=== PATIENT | female | born 1955 | race Caucasian/White ===

== ENCOUNTER → 2016-05-10 17:14 | Outpatient (CLI) | payer OTHER | END | disposition home or self-care (01) | LOC: D.MAMMO 15:00 | DX: Z12.31 Encounter for screening mammogram for malignant neoplasm of breast (principal) ==

== ENCOUNTER 2016-07-03 08:28 | Emergency (ER) | payer OTHER ==
[2016-07-03 09:53] LABS: BASOPHILS 0.1 % (0.0-2.0); EOSINOPHILS 0 % (0-7); HEMATOCRIT 44.8 % (36.0-48.0); HEMOGLOBIN 14.9 g/dL (12-16); IMMATURE GRANULOCYTES 0.2 % (0-5); LYMPHOCYTES 3.5 % (15-50); MCHC 33.3 g/dL (31.0-37.0); MCV 96.1 fL (80.0-100.0); MEAN PLATELET VOLUME 11.3 fL (7.4-10.4); MONOCYTES 2.5 % (2-11); NEUTROPHILS 93.7 % (40-80); PLATELET COUNT 256 10x3/uL (130-400); RBC 4.66 10x6/uL (4.00-5.40); RDW 12.9 % (11.5-14.5)
[2016-07-03 10:02] LABS: APPEARANCE HAZY (CLEAR); COLOR YELLOW (YELLOW); SPECIFIC GRAVITY 1.005 (1.005-1.020)
[2016-07-03 10:04] LABS: BILIRUBIN NEGATIVE (NEGATIVE); GLUCOSE NEGATIVE (NEGATIVE); KETONE NEGATIVE (NEGATIVE); LEUKOCYTE ESTERASE TRACE (NEGATIVE); NITRITE NEGATIVE (NEGATIVE); PROTEIN NEGATIVE (NEGATIVE); UROBILINOGEN NORMAL (NORMAL); WHITE CELLS - URINE RARE /hpf (0-5)
[2016-07-03 10:05] LABS: BACTERIA MODERATE /hpf (NONE SEEN)
[2016-07-03 10:08] LABS: ALBUMIN 3.8 g/dL (3.4-5.0); ALKALINE PHOSPHATASE 83 U/L (46-116); ALT (SGPT) 22 U/L (10-68); CALC OSMOLALITY 287 mosm/kg (275-300); CALCIUM 8.7 mg/dL (8.5-10.1); CARBON DIOXIDE 24.7 mmol/L (21.0-32.0); CHLORIDE - SERUM 105 mmol/L (98-107); CREATININE - SERUM 0.8 mg/dL (0.6-1.3); GLUCOSE 135 mg/dL (74-106); POTASSIUM - SERUM 3.6 mmol/L (3.5-5.1); PROTEIN - SERUM 7.9 g/dL (6.4-8.2); SODIUM 142 mmol/L (136-145); UREA NITROGEN 20 mg/dL (7-18); eGFR NON AFRICAN AMERICAN 77 mL/min (90-120)
== END 2016-07-03 11:04 | disposition home or self-care (01) ==
LOC: D.ER 08:28
PROVIDERS: Emergency Medicine
DX: R19.7 Diarrhea, unspecified (principal); R11.10 Vomiting, unspecified; K21.9 Gastro-esophageal reflux disease without esophagitis; F41.9 Anxiety disorder, unspecified

== ENCOUNTER → 2016-12-08 08:20 | Outpatient (CLI) | payer OTHER | END | disposition home or self-care (01) | LOC: D.RAD 11-29 08:00 | DX: R12 Heartburn (principal) ==

== ENCOUNTER 2017-02-26 05:45 | Inpatient (IN) | payer OTHER ==
[2017-02-23 10:25] LABS: HEMATOCRIT 42.3 % (36.0-48.0); HEMOGLOBIN 13.9 g/dL (12-16); MCH 32.1 pg (26.0-34.0); MCHC 32.9 g/dL (31.0-37.0); MCV 97.7 fL (80.0-100.0); MEAN PLATELET VOLUME 11.7 fL (7.4-10.4); RBC 4.33 10x6/uL (4.00-5.40); RDW 13.4 % (11.5-14.5); WBC 6.7 10x3/uL (4.8-10.8)
[~2017-02-26] VITALS: Ht 157.5 cm; Wt 67.3 kg
[~2017-02-26 05:45] MED LIST: ATIVAN0.5 MG PO; CALCIUM 600 +1 EAC3 PO; PREVACID30 MG PO; VITAMIN C1000 MG PO
[2017-02-26 06:12] VITALS: BP 121/69; BMI 27.1
[2017-02-26 10:34] VITALS: BP 108/70
--- NOTE | 2017-02-26 10:35 | NUR ---
RECIEVED PT FROM RECOVERY AT THIS TIME, POST-OP STABILITY VITAL STARTED. ASSESSMENT DONE PER FLOWSHEET. BED IN LOW POSITION AND CALL LIGHT WITHIN REACH. WILL CONTINUE TO MONITOR.
[2017-02-26 11:29] VITALS: BP 108/70; Ht 157.5 cm; Wt 67.3 kg
[2017-02-26 12:10] VITALS: BP 95/68
--- NOTE | 2017-02-26 12:56 | OP ---
PATIENT NAME: PADMA JC MEDICAL RECORD: [id number] :57 LOCATION:[id number] ADMISSION DATE: SURGEON: JOSE A RAMIREZ MD DATE OF OPERATION: 02/26/2017 SURGEON: Jose A Ramirez MD PREOPERATIVE DIAGNOSES: 1. Gastroesophageal reflux disease. 2. Hiatal hernia. 3. Esophagitis. POSTOPERATIVE DIAGNOSES: 1. Gastroesophageal reflux disease. 2. Hiatal hernia. 3. Esophagitis. 4. Paraesophageal hernia. ANESTHESIA: General. COMPLICATIONS: None. PROCEDURES: 1. Laparoscopic paraesophageal hernia repair. 2. Laparoscopic Tatiana fundoplication. SPECIMENS: None. Case was clean. ESTIMATED BLOOD LOSS: 30 cc. OPERATIVE COURSE: After consent was obtained, the patient was taken to the operating room and placed in the supine position on the operating table. Next, general anesthesia was given via endotracheal intubation after a timeout was performed that confirmed the correct patient and procedure. Local anesthetic was injected just above the umbilicus. A stab incision was made with 11-blade scalpel. Using an 11-mm bladeless optical trocar, the abdomen was entered under direct laparoscopic vision. Adequate pneumoperitoneum was achieved. The abdominal cavity was inspected. No evidence of bowel obstruction. No evidence of bleeding. The patient was then placed in the steep reverse Trendelenburg position. All remaining trocars were placed. After the administration of local anesthetic under direct laparoscopic vision, two 5-mm trocars in the left lateral quadrant, 12-mm trocar and 5-mm trocar in the left lateral quadrant, Bekah liver retractor in the subxiphoid position. The left lobe of liver was retracted exposing the GE junction. The cardia of the stomach was herniated into the mediastinum. The stomach was reduced. The short gastrics were taken along the cardia using the Harmonic scalpel. Dissection continued to the area of the left crura. The left crura skeletonized using the Harmonic scalpel. Next, the gastrohepatic ligament was opened using the Harmonic scalpel. Dissection continued to the right crura. Dissection continued posteriorly and anteriorly until the hernia sac was circumferentially dissected. The hernia sac was excised using the Harmonic scalpel. Mediastinal dissection continued until approximately 4-5 cm of intraabdominal esophagus was obtained. Tasha was applied to the mediastinum. The hiatal hernia was fixed with an 0 polypropylene OPERATIVE REPORT [id number] PADMA JC Stratafix suture. Next, a loose floppy Tatiana fundoplication was performed. The cardia was passed posterior to the gastroesophageal junction and loose floppy Tatiana fundoplication was performed with 2-0 Stratafix PDS Plus. Next, the operative site was copiously irrigated and suctioned. Careful attention was paid for hemostasis. The abdominal cavity was inspected. There was no evidence of bowel injury and no evidence of bleeding. The Bekah liver retractor was removed. The 5-mm camera was placed. The 12-mm and 11-mm trocar sites were closed with the Soren-Miguel suture passer and an 0 Vicryl suture under direct laparoscopic vision. At this time, the abdomen was desufflated. Three Valsalvas were performed. The remaining trocars were removed. The skin was closed with 4-0 Monocryl, Mastisol and Steri-Strips. At the end of the case, all needle and instrument counts were correct. No complications occurred. The patient was extubated and transferred to the PACU in stable condition. TRANSINT:[id number] Voice Confirmation ID: [id number] DOCUMENT ID: [id number] JOSE A RAMIREZ MD at 1256 CC: [id number] DICTATION DATE: 02/26/1757 DRY CLEANING SUPERVISOR: 02/26/17 1222 [facility] [address] [place] [address]
--- NOTE | 2017-02-26 15:27 | NUR ---
ASSUMED PULMONARY CARE. SUBJECTIVE CO ABDOMINAL PAIN DUE TO POST SURGICAL PROCEDURE. ECM222% ON 29% FI02. VERY FAINT EXP WHEEZE TO LEFT APEX. ZERO S/S OF IMMEDIATE RESP DISTRESS PT [place] WELL
[2017-02-26 16:45] VITALS: BP 105/60
[2017-02-26 20:00] VITALS: BP 104/59
--- NOTE | 2017-02-26 20:08 | NUR ---
HELPED UP TO BATHROOM AND BACK TO BED, DENIES NEEDS, BED LOWEST POSITION, CALL LIGHT IN REACH, WILL CONTINUE TO MONITOR
[2017-02-27 04:00] VITALS: BP 108/68
[2017-02-27 05:33] LABS: BASOPHILS 0.3 % (0-2); EOSINOPHILS 0.6 % (0-7); HEMATOCRIT 35.1 % (36.0-48.0); HEMOGLOBIN 11.5 g/dL (12-16); IMMATURE GRANULOCYTES 0.3 % (0-5); LYMPHOCYTES 22.4 % (15-50); MCH 31.9 pg (26.0-34.0); MCHC 32.8 g/dL (31.0-37.0); MCV 97.2 fL (80.0-100.0); MEAN PLATELET VOLUME 11.2 fL (7.4-10.4); MONOCYTES 9.9 % (2-11); NEUTROPHILS 66.5 % (40-80); PLATELET COUNT 226 10x3/uL (130-400); RBC 3.61 10x6/uL (4.00-5.40); RDW 13.8 % (11.5-14.5); WBC 7.8 10x3/uL (4.8-10.8)
[2017-02-27 05:56] LABS: ALBUMIN 2.8 g/dL (3.4-5.0); ALKALINE PHOSPHATASE 60 U/L (46-116); ALT (SGPT) 71 U/L (10-68); CALC OSMOLALITY 272 mosm/kg (275-300); CALCIUM 7.9 mg/dL (8.5-10.1); CARBON DIOXIDE 26.6 mmol/L (21.0-32.0); CHLORIDE - SERUM 102 mmol/L (98-107); CREATININE - SERUM 0.6 mg/dL (0.6-1.3); GLUCOSE 94 mg/dL (74-106); POTASSIUM - SERUM 3.8 mmol/L (3.5-5.1); PROTEIN - SERUM 5.7 g/dL (6.4-8.2); SODIUM 137 mmol/L (136-145); UREA NITROGEN 11 mg/dL (7-18); eGFR NON AFRICAN AMERICAN > 90 mL/min (90-120)
--- NOTE | 2017-02-27 06:58 | NUR ---
PT REFUSED UPDRAFT DUE TO ANXIETY RELATED SIDE EFFECTS OF THE MEDICATION. SUJ COMPLAINTS OF SHAKIINESS TREMORS. NURSE NOTIFIED
--- NOTE | 2017-02-27 07:15 | NUR ---
PT COMPLAINS OF ABDOMINAL PAIN AT A 6 FROM SCALE OF 0-10 WITH 10 BEING THE WORSE. ADMINISTERED PRN PAIN MEDICATION. PT DAUGHTER AT BEDSIDE, PT INQUIRED ON WHEN DR RAMIREZ WILL BE IN TO SEE. ADVISED DR RAMIREZ USUALLY IN BETWEEN 8-8:30. NO OTHER NEEDS AT THIS TIME. CONTINUE WITH PLAN OF CARE
[2017-02-27] MEDS ORDERED: HYDROCODON-ACE1 EAC7 PO (08:14)
[2017-02-27 08:40] VITALS: BP 102/65
--- NOTE | 2017-02-27 09:00 | NUR ---
RECIEVED DC ORDERS ON PT, PT WANTED TO HAVE ATIVAN BEFORE SHE LEFT, WENT OVER DC PAPERWORKA ND INSTRUCTIONS WITH PT. PT TAKEN DOWN BY WC WITH VOLUNTEER OUT FRONT
== END 2017-02-27 10:20 | disposition home or self-care (01) | DRG 328 ==
LOC: D.OPS 05:45 → D.MS 05:45 → D.OPS 08:00 → D.PAN 08:00 → EDSTATUS 08:00 → D.MS 10:22 → D.OPS 10:22 → D.MS 02-27 10:20 → D.OPS 02-27 10:20
PROVIDERS: Anesthesiology; ADMIT Surgery
PROC: 0DV44ZZ Restriction of Esophagogastric Junction, Percutaneous Endoscopic Approach (ICD-10-PCS; principal; 2017-02-26 08:00)
PROC: 0BQT4ZZ Repair Diaphragm, Percutaneous Endoscopic Approach (ICD-10-PCS; 2017-02-26 08:00)
DX: K21.0 Gastro-esophageal reflux disease with esophagitis (principal); K44.9 Diaphragmatic hernia without obstruction or gangrene; Z01.812 Encounter for preprocedural laboratory examination

== ENCOUNTER → 2017-07-24 18:04 | Outpatient (CLI) | payer OTHER ==
[2017-02-26 11:29] VITALS: BMI 27.1
[~2017-07-24 18:04] MED LIST changes: +HYDROCODON-ACE1 EAC7 PO
== END | disposition home or self-care (01) ==
LOC: D.MAMMO 15:15
DX: Z12.31 Encounter for screening mammogram for malignant neoplasm of breast (principal)

== ENCOUNTER 2020-06-23 12:25 | Outpatient (CLI) | payer OTHER ==
[2017-02-26 11:29] VITALS: BMI 27.1
== END 2020-06-23 23:59 | disposition home or self-care (01) ==
LOC: D.MAMMO 12:25
PROVIDERS: ATTEND Family Medicine
DX: Z12.31 Encounter for screening mammogram for malignant neoplasm of breast (principal)